=== PATIENT | male | born 1980 ===

== ENCOUNTER 2017-07-18 18:41 | Emergency (ER) | payer OTHER ==
[2017-07-18] MEDS ORDERED: oxyCODONE/Acetamin 5/325 MG* TAB PO ONE (20:13)
[2017-07-18] MEDS ORDERED: Ibuprofen TAB* 800 MG PO ONE (20:13)
--- NOTE | 2017-07-18 20:55 | RAD ---
HISTORY: Right forearm pain, right wrist pain COMPARISONS: None VIEWS: 5, Frontal, lateral, and oblique views of the right breast with frontal and lateral views of the right forearm FINDINGS: BONE DENSITY: Normal. BONES: There is a comminuted, slightly dorsally angulated fracture of the distal radial metaphysis. There is a slightly displaced fracture of the styloid processes of the liver. JOINTS: There is no arthropathy. ALIGNMENT: There is no dislocation. SOFT TISSUES: Unremarkable. OTHER FINDINGS: None. IMPRESSION: SLIGHTLY DORSALLY ANGULATED FRACTURE OF THE DISTAL RADIUS. FRACTURE OF THE SOLID PROCESS OF THE ULNA
--- NOTE | 2017-07-18 21:09 | ED ---
Upper Extremity Pain - HPI Summary HPI Summary: 37M presents with right wrist pain today. He was snowboarding and fell onto his outstretched hand. He denies any head injury. He denies any LOC. He denies any other pain. This pain radiates into his forearm. He has never fractured this area before. He admits to numbness in all fingers. He has not taken anything for pain. He has no medical conditions. He is right-handed. He is a PhD student. - History of Current Complaint Chief Complaint: EDExtremityUpper Stated Complaint: ARM INJURY Time Seen by Provider: 07/18/17 20:07 - Allergies/Home Medications Allergies/Adverse Reactions: Allergies Allergy/AdvReac Type Severity Reaction Status Date / Time No Known Allergies Allergy Verified 07/18/17 18:44 PMH/Surg Hx/FS Hx/Imm Hx Endocrine/Hematology History: Denies: Hx Anticoagulant Therapy Cardiovascular History: Denies: Hx Hypertension Infectious Disease History: No Infectious Disease History: Denies: Traveled Outside the [place] in Last 30 Days - Family History Known Family History: Positive: Hypertension - Social History Occupation: Student Smoking Status (MU): Never Smoked Tobacco Review of Systems Negative: Fever Negative: Chest Pain Negative: Shortness Of Breath Positive: Myalgia - right wrist injury All Other Systems Reviewed And Are Negative: Yes Physical Exam Triage Information Reviewed: Yes Vital Signs On Initial Exam: Initial Vitals Temp Pulse Resp BP Pulse Ox 98.7 F 66 18 134/55 99 07/18/17 18:43 07/18/17 18:43 07/18/17 18:43 07/18/17 18:43 07/18/17 18:43 Vital Signs Reviewed: Yes Appearance: Positive: Well-Appearing Skin: Positive: Warm, Dry Head/Face: Positive: Normal Head/Face Inspection Eyes: Positive: Normal, Conjunctiva Clear Respiratory/Lung Sounds: Positive: Clear to Auscultation, Breath Sounds Present Cardiovascular: Positive: Normal, RRR Musculoskeletal: Positive: Limited @ - right wrist, Edema Right - wrist, Other - deformity to right wrist, gross sensation intact, capillary refill<2 secs, neg snuff box tenderness Neurological: Positive: Normal Psychiatric: Positive: Normal Procedures - Splinting Location: right wrist Hand-Made Type: orthoglass Splint: sugar-tong Pre-Proc Neuro Vasc Exam: normal Post-Proc Neuro Vasc Exam: normal - Joint Reduction Joint Reduction Site: wrist (R) Conscious Sedation: No - hematoma block Reduction Attempts: 1 - manual reduction Pre-Procedure NV Exam: Yes Diagnostics - Vital Signs Vital Signs Temp Pulse Resp BP Pulse Ox 07/18/17 18:43 98.7 F 66 18 134/55 99 - Laboratory Lab Statement: Any lab studies that have been ordered have been reviewed, and results considered in the medical decision making process. Course/Dx - Course Course Of Treatment: 37M presents with right wrist pain today. He was snowboarding and fell onto his outstretched hand. He denies any head injury. He denies any other pain. This pain radiates into his forearm. He has never fractured this area before. He admits to numbness in all fingers. He has not taken anything for pain. He has no medical conditions. He is right-handed. He is a PhD student. On exam neurovascular intact. Has deformity to right wrist. X-ray shows Colles' fracture. Performed a hematoma block and manually reduced wrist. Placed in a sugar tong splint. Spoke with Dr. Wood and made aware of patient. will follow-up with ortho. Patient understands and agrees with plan. - Diagnoses Differential Diagnosis/HQI/PQRI: Positive: Fracture (Closed), Strain, Sprain Provider Diagnoses: Fracture of right wrist Discharge - Discharge Plan Condition: Good Disposition: HOME Prescriptions: oxyCODONE/Acetamin 5/325 MG* [Percocet 5/325 TAB*] 1 tab PO Q6H PRN #18 tab MDD 4 PRN Reason: Pain Patient Education Materials: Wrist Fracture in Adults (ED) Referrals: Non Staff,Doctor [Primary Care Provider] - Randal Wood MD [Medical Doctor] - Additional Instructions: Keep elbow in sling as needed Keep splint on area and keep dry Call ortho office thursday to set up appointment for follow up Use ibuprofen for pain every 6 hours and use narcotic for breakthrough pain Ice, elevate Return to ED if develop any new or worsening symptoms
[2017-07-18] MEDS ORDERED: Diazepam TAB(*) 5 MG PO ONE (21:12)
[2017-07-18 22:28] VITALS: BP 116/36
== END 2017-07-18 22:43 | disposition home or self-care (01) ==
LOC: ED 18:41
DX: S62.101A Fracture of unspecified carpal bone, right wrist, initial encounter for closed fracture (principal); M25.531 Pain in right wrist; W19.XXXA Unspecified fall, initial encounter; Y93.23 Activity, snow (alpine) (downhill) skiing, snowboarding, sledding, tobogganing and snow tubing; Y92.9 Unspecified place or not applicable
CPT/HCPCS: 25680; 99281; A9270-GY

== ENCOUNTER 2017-07-19 14:17 | Emergency (ER) | payer OTHER ==
--- NOTE | 2017-07-19 16:09 | ED ---
Upper Extremity Pain - History of Current Complaint Chief Complaint: EDExtremityUpper Stated Complaint: HAND INJURY Time Seen by Provider: 07/19/17 14:30 - Allergies/Home Medications Allergies/Adverse Reactions: Allergies Allergy/AdvReac Type Severity Reaction Status Date / Time No Known Allergies Allergy Verified 07/18/17 18:44 PMH/Surg Hx/FS Hx/Imm Hx Infectious Disease History: No Infectious Disease History: Denies: Traveled Outside the [place] in Last 30 Days - Social History Alcohol Use: None Substance Use Type: Reports: None Smoking Status (MU): Never Smoked Tobacco Physical Exam Vital Signs On Initial Exam: Initial Vitals Temp Pulse Resp BP Pulse Ox 98.5 F 74 20 122/52 98 07/19/17 14:18 07/19/17 14:18 07/19/17 14:18 07/19/17 14:18 07/19/17 14:18 Diagnostics - Vital Signs Vital Signs Temp Pulse Resp BP Pulse Ox 07/19/17 14:18 98.5 F 74 20 122/52 98 - Laboratory Lab Statement: Any lab studies that have been ordered have been reviewed, and results considered in the medical decision making process. Course/Dx - Course Course Of Treatment: better once splint was off. did not want reduction - Diagnoses Provider Diagnoses: Wrist fracture, right - Physician Notifications Discussed Care of Patient With: Dr Lutz Time Discussed With Above Provider: 16:40 Instructed by Provider To: Have Pt Call For Appt. Discharge - Discharge Plan Condition: Stable Disposition: HOME Patient Education Materials: Wrist Fracture in Adults (ED) Referrals: Non Staff,Doctor [Primary Care Provider] - Darwin Lutz MD [Medical Doctor] - Additional Instructions: Please follow up with orthopedics tomorrow afternoon, call in the morning. Continue pain medication as well as 600mg of advil every 6 hours to help with inflammation. Ice and elevate. Do not remove wrist splint. Any new or worsening symptoms please seek medical attention promptly, and return , as discussed. Follow up with PCP.
[2017-07-19] MEDS ORDERED: Ibuprofen TAB* 600 MG PO ONE (16:51)
[2017-07-19] MEDS ORDERED: HYDROcodone/ACETAMIN 5-325 MG* 1 TAB PO ONE (16:51)
[2017-07-19 17:30] VITALS: BP 122/78
== END 2017-07-19 17:29 | disposition home or self-care (01) ==
LOC: ED 14:17
DX: S62.101A Fracture of unspecified carpal bone, right wrist, initial encounter for closed fracture (principal); X58.XXXA Exposure to other specified factors, initial encounter; Y93.9 Activity, unspecified; Y92.9 Unspecified place or not applicable
CPT/HCPCS: 99282; A9270-GY

== ENCOUNTER 2017-07-22 12:11 | Day surgery (SDC) | payer OTHER ==
[~2017-07-22 12:11] MED LIST: Buffered Lidocaine 0.9% SYRIN* 5 ML/SYR SYRINGE INTRADERM ONE; DiMENhydriNATE IV* 50 MG/ML VIAL IV PUSH PRN; Famotidine IV* 10 MG/ML 2 ML (20 mg) IV ONE; Morphine INJ* 2 MG/ML 1 ML CARPUJECT IV PRN; Naloxone* 0.4 MG/ML 1 ML VIAL IV PRN; PROCHLORPERAZINE INJ 5 MG/ML 2 ML VIAL IV PRN; Scopolamine 1.5 mg* PATCH TRANSDERM PRN; fentaNYL* 50 MCG/ML 2 ML VIAL (100 MCG VIAL) IV PRN; oxyCODONE/Acetamin 5/325 MG* TAB PO PRN
[2017-07-22] MEDS ORDERED: Famotidine IV* 10 MG/ML 2 ML (20 mg) ONE (12:18)
[2017-07-22] MEDS ORDERED: Midazolam* 1 MG/ML 10 ML VIAL (10 MG) ONE (14:05)
[2017-07-22] MEDS ORDERED: fentaNYL* 50 MCG/ML 2 ML VIAL (100 MCG VIAL) ONE (14:05)
[2017-07-22] MEDS ORDERED: Propofol* 10 MG/ML 20 ML BTL IV PUSH ONE (17:19)
[2017-07-22] MEDS ORDERED: Dexamethasone IV* 4 MG/ML 1 ML (4 MG) ONE (17:19)
[2017-07-22] MEDS ORDERED: Ondansetron INJ* 2 MG/ML VIAL ONE (17:19)
[2017-07-22 19:39] VITALS: BP 109/74
--- NOTE | 2017-07-23 07:14 | RAD ---
INDICATION: Right wrist traumatic fracture operative reduction and internal fixation. COMPARISON: Comparison is made with a prior study from July 18 2017. TECHNIQUE: 5.2 seconds of intermittent fluoroscopic guidance were provided and 14 spot films of the right wrist were obtained in the operating room. FINDINGS: The films demonstrate operative reduction internal fixation of a transverse comminuted displaced fracture of the distal radial metaphysis. There is placement of a metallic plate along the anterior aspect of the distal radius spanning the fracture fragments transfixed with multiple screws. The bones are normal alignment. IMPRESSION: INTRAOPERATIVE CONTROL FILMS. CPT II Codes: 6045F
--- NOTE | 2017-07-23 19:36 | OP ---
DATE OF OPERATION: 07/22/17 - [facility] DATE OF : 80 SURGEON: Darwin Lutz MD CHEMICAL LABORATORY TESTER: IONA Reinoso. A physician assist was required for the length of the procedure for positioning, manipulation, retraction, and closure. ANESTHESIOLOGIST: Dr. Joaquin Shwa. ANESTHESIA: General anesthesia, interscalene block anesthesia. PRE-OP DIAGNOSIS: Right distal radius fracture, displaced. POST-OP DIAGNOSIS: Right distal radius fracture, displaced. OPERATIVE PROCEDURE: Open reduction internal fixation right distal radius fracture, displaced, extraarticular. ANTIBIOTICS: Ancef 2 g IV. IV FLUIDS: 1200 cc crystalloid. TOURNIQUET TIME: 121 minutes at 250 mmHg. COMPLICATIONS: None. SPECIMENS: None. IMPLANTS: Synthes 3-hole polyaxial 2.7 mm distal radius volar locking plate. Through the plate, I placed 2.4 mm locking screws. I also placed one nonlocking 2.7 mm screw in the oval-hole proximally. ESTIMATED BLOOD LOSS: Minimal. INDICATIONS FOR PROCEDURE: The patient is a 37-year-old man, right hand dominant, PhD student in mechanical engineering, at [employer], who presents on clinic on 07/20/17, having injured himself 2 days prior on 07/18/17 , 4 days prior to operation. The patient injured himself with a fall on an outstretched hand. [place] The patient went [place] [facility] the date of the accident. The patient underwent a hematoma block, fingertrap reduction and manual reduction and splinting. According to ER team, there was not significant improvement of gross visual deformity of fracture, although postreduction imaging was not obtained. The following day, 07/19/17, the patient returned to the emergency department complaining of some numbness and tingling throughout his hand. The splint was loosened at the patient's request and his numbness and tingling resolved. One occasion was that the patient described some tingling at the distal most tip of all of his fingers, although on physical exam his sensation was fully intact. By the second day in the emergency room, the patient refused and attempted a second closed reduction by emergency room staff. The patient in clinic 2 days after his injury. He had failed one closed reduction in the emergency department and by x-ray had an extraarticular right distal radius fracture with 50% dorsal translation and significant dorsal tilt. We spoke about operative management versus nonoperative management. I reviewed risks and potential complications of surgery including bleeding, infection, nerve or blood vessel injury, wrist pain, stiffness, osteoarthritis, need for removal of hardware, tendon injury. The patient opted for surgery. We kept the patient in his splint and told him to move his fingers and keep his right upper extremity elevated and return to the hospital in 2 days for surgery. DESCRIPTION OF PROCEDURE: The patient signed a consent in preoperative holding. Operative extremity was marked in preoperative holding. In preoperative holding, Dr. Shaw performed an interscalene regional nerve block. The patient was taken to the operating room where he was transferred to the operating room table. Sedated and intubated. A mini C-arm was brought in and with the patient still in splint, images were obtained showing the fracture to be significantly displaced, as had been seen in the emergency department. A splint was removed. There were noted to be some small perhaps 1-mm tears in the skin about the ulnar aspect of the volar wrist. Not clearly from the inside out. It could have been from pressure in the splint. There were 2 or 3 of these small skin defects, perhaps each 1 x 1 mm. Hand table attached to the table. A tourniquet applied to the right upper arm. The right upper extremity was prepped with Betadine. It was draped. A surgical time-out was performed. Esmarch was applied and the tourniquet was elevated to 250 mmHg. This was done after the surgical time-out was performed. A skin incision was made, standard, volar skin incision, longitudinal, approximately 7.5 cm overlying the FCR tendon. I dissected down to FCR tendon. I incised FCR sheath. Retracted FCR ulnarly. Incised the FCR subsheath. Retracted FPL tendon ulnarly. I encountered pronator quadratus. The patient was noted to have a coulter pronator quadratus muscle. A fracture was quickly encountered. The pronator quadratus was incised of the radial border of the distal radius proximal and distal to the fracture. Periosteal elevator lifted it off of the volar aspect of the radius. The fracture site was debrided briefly with mini rongeur. Irrigation. First several attempts at reduction were unsuccessful. There was a rotatory malreduction at the fracture site and some difficulty getting it out to length. Mentcle was employed into the transverse fracture site. A bone clamp was used down the more proximal fragment. Repeat attempt of reduction was very successful. Visually, bone was clearly perfectly reduced. K-wires were placed through the radial styloid across the fracture site through the ulnar cortex of the distal radius. X-rays confirmed placement of 3 K-wires through the radial styloid as well as excellent reduction at the fracture site. There was noted to be a small loose fragment of bone about the ulnar side of the distal radius. This was noted on mini C-arm imaging, but I also visualized it and removed it. No specific place where I keyed in on to the distal radius. I also placed a pin from the radial aspect of the distal radius proximal to the fracture site, aiming distal and volar across the fracture site. He is very happy with my provisional fixation. I sized plates. Normal width plate seemed appropriate rather than narrow or broad. I placed the volar locking plate. I placed 2 pins to keep it in place. Mini C-arm images assessed the location of the plate. I then placed a nonlocking 2.4 mm screw through the oval hole proximally. I then fine tune the position of the plate, rotating it slightly and moving it slightly distal. I then re-pinned that plate in place and like the plate position. My first screw next placed was a 2.4 nonlocking screw in the distal row. I placed this to suck the plate to bone nicely, completing the reduction. I did all this with the wrist in a flexed position. After placing my nonlocking screw distally, I filled the distal row with locking 2.4 mm screws. I then returned to the proximal aspect of the plate and placed locking 2.4 mm screws. I obtained images. I then removed my nonlocking distal row screw and placed a shorter locking screw. I also filled the second row distally with locking screws. I then returned proximally and removed my 2.4 nonlocking screw and placed a shorter nonlocking 2.7 mm screw, intentionally, without redrilling. I obtained final films. I reoriented one of my distal row screws, imminent slightly more proximal. I obtained final films. Reduction was excellent. Placement of all screws appeared excellent. Distal row and at least one of the second row around the distal fragment. All screws seemed proximal to the subchondral bone especially in a 15 degree lateral was performed. The patient was noted both pre and intraoperatively to also have a fracture of the right ulnar styloid process. It is noted to be close to the date. Displacement was minimal preoperatively and it appeared more anatomically well reduced intra-operatively after the distal radius had been reduced. The DRUJ was stressed intraoperatively and was found to be stable with no excess volar or dorsal translation of the ulna. Irrigation. The patient did not have a robust FCR subsheath to attach the pronator quadratus too. Therefore, I placed 2 stitches more deeply using 2.0 Vicryl suture. I placed 1 stitch, tying the pronator quadratus down to the volar locking plate. Another stitch I placed to more distal fascia to the pronator quadratus. Irrigation. Closure of the subcutaneous tissue with buried simple stitches using Vicryl 3.0 suture. Closed the skin with a running stitch using nylon 4.0 suture. The tourniquet was dropped. Xeroform over the skin incision as well as over the pin sites through the skin. The pins were removed after I had placed most of my screws through the plate. I then placed 4x4s, sterile Webril. I then placed a volar plaster wrist splint. The patient was awakened and extubated and brought to the PACU. A sling was placed on him, simple sling. DISPOSITION: The patient will remain in the splint. He will take Percocet as needed for pain control. He will take Keflex for infection prophylaxis for 5 days postoperatively. He will follow up with me in clinic 7 to 10 days postoperatively for removal of stitches and to start physical therapy. [id number]/[facility] #: [id number] Michele- [id number]/[facility] #: [id number] RAS
--- NOTE | 2017-07-23 20:10 | OP ---
OPERATIVE REPORT: ADDENDUM: TOURNIQUET TIME: 121 minutes at 250 mmHg. The patient was noted both pre and intraoperatively to also have a fracture of the right ulnar styloid process. It is noted to be close to the date. Displacement was minimal preoperatively and it appeared more anatomically well reduced intraoperatively after the distal radius had been reduced. The DRUJ was stressed intraoperatively and was found to be stable with no excess volar or dorsal translation of the ulna. [id number]/[facility] #: [id number] [facility] CANCER CENTERFreda
[2017-07-25] MEDS ORDERED: Scopolamine PATCH Remove* 1 NOTE MISC PATCH OFF ONE (06:06)
== END 2017-07-22 19:20 | disposition home or self-care (01) ==
LOC: OR 12:11
PROVIDERS: ATTEND Orthopaedic Surgery
DX: S52.551A Other extraarticular fracture of lower end of right radius, initial encounter for closed fracture (principal); W17.81XA Fall down embankment (hill), initial encounter; Y93.23 Activity, snow (alpine) (downhill) skiing, snowboarding, sledding, tobogganing and snow tubing; Y92.39 Other specified sports and athletic area as the place of occurrence of the external cause; G89.18 Other acute postprocedural pain
CPT/HCPCS: 76000; C1713; C1776; J1100; J2250; J2405; J2704; J3010